=== PATIENT | female | born 1975 | race American Indian/Alaskan Native ===

== ENCOUNTER 2017-07-02 09:05 | Emergency (ER) | payer OTHER ==
[2017-07-02 09:10] VITALS: BP 153/80; PULSE 63; RESP 20; TEMP 97.9; O2SAT 100
--- NOTE | 2017-07-02 09:27 | C.PDOC ---
History Of Present Illness 42 years old female presents to the ED with complaints of intermittent headaches for 3 weeks. Patient reports pain is diffused to the front of her head , eyes and nose. She also complains of pain to her right hand that radiates to her elbow ongoing for couple of weeks. Patient admits pain worsens with writing or using the mouse of the computer. She denies taking any medication or experiencing any fever, chills, nausea or vomiting. PMD: non provided Time Seen by Provider: 07/02/17 09:15 Chief Complaint (Nursing): Headache History Per: Patient History/Exam Limitations: no limitations Onset/Duration Of Symptoms: Days (21), Intermittent Episodes Associated Symptoms: denies: Nausea, Vomiting Past Medical History Reviewed: Historical Data, Nursing Documentation, Vital Signs Vital Signs: Last Vital Signs Temp 97.9 F 07/02/17 09:07 Pulse 63 07/02/17 09:07 Resp 20 07/02/17 09:07 BP 153/80 H 07/02/17 09:07 Pulse Ox 100 07/02/17 13:59 - Medical History PMH: HTN, Hypercholesterolemia Surgical History: No Surg Hx Family History: States: Unknown Family Hx - Social History Hx Tobacco Use: No Hx Alcohol Use: No Hx Substance Use: No - Immunization History Hx Tetanus Toxoid Vaccination: No Hx Influenza Vaccination: No Hx Pneumococcal Vaccination: No Review Of Systems Except As Marked, All Systems Reviewed And Found Negative. Constitutional: Negative for: Fever, Chills Gastrointestinal: Negative for: Nausea, Vomiting Musculoskeletal: Positive for: Hand Pain (Right) Neurological: Positive for: Headache (Diffused to front of head, eyes and nose) Physical Exam - Physical Exam Appears: Non-toxic, No Acute Distress Skin: Normal Color Eye(s): bilateral: Normal Inspection, PERRL, EOMI Nose: Normal Neck: Normal, Normal ROM, Supple Cardiovascular: Rhythm Regular, No Murmur Respiratory: Normal Breath Sounds, No Wheezing Gastrointestinal/Abdominal: Normal Exam, Soft, No Tenderness Extremity: Normal ROM (of right hand), No Tenderness Neurological/Psych: Oriented x3 ED Course And Treatment O2 Sat by Pulse Oximetry: 100 (RA) Pulse Ox Interpretation: Normal Medical Decision Making Medical Decision Making: Time: 923 Patient is discharged with prescription of Motrin for hand pain and allergy medication. Disposition Counseled Patient/Family Regarding: Diagnosis, Need For Followup, Rx Given - Disposition Disposition: HOME/ ROUTINE Disposition Time: 09:24 Condition: STABLE Additional Instructions: Take medications as indicated. Follow up with your doctor for further evaluation. Prescriptions: Fluticasone Propionate [Flonase Allergy Relief] 1 ml NS BID #1 spray.susp Instructions: Seasonal Allergies (DC) Forms: General Discharge Instructions, [facility] (French), Work Excuse - Clinical Impression Clinical Impression: Headache, Seasonal allergies - Scribe Statement The provider has reviewed the documentation as recorded by the Scribe (Nakia Daley)
== END 2017-07-02 09:38 | disposition home or self-care (01) ==
LOC: C.ER 09:05
DX: R51 Headache (principal); J30.2 Other seasonal allergic rhinitis; I10 Essential (primary) hypertension; E78.00 Pure hypercholesterolemia, unspecified

== ENCOUNTER 2017-09-25 08:42 | Emergency (ER) | payer OTHER ==
[2017-09-25 08:54] VITALS: BP 142/83; PULSE 89; RESP 18; TEMP 98.7; O2SAT 100
--- NOTE | 2017-09-25 09:26 | C.PDOC ---
History Of Present Illness 42 year old female presents to ED c/o new onset of facial itchiness, burning for the past week. No associated lesions, rash. Pt states she applied prescription steroid on face once without improvement. Denies other associated symptoms. NEW ONSET FACIAL ITCH, BURNING X 1 WEEK. NO ASSOC LESIONS, RASH. PS APPLIED PRESCRIPTION STEROID ON FACE X 1, NO IMPROVE. DENIES OTHER ASSOC SX EXAM NAD NONTOXIC HEENT NO ANGIOEDEMA SKIN +DRY SKIN, FACIAL IRRITATION. NO LESIONS, ERYTHEMA. INTACT. REMAINDER NEG MDM SENSITIVE SKIN PRODUCTS, MOISTURE, PREDNISONE, REFER CLINIC Time Seen by Provider: 09/25/17 09:23 Chief Complaint (Nursing): Abnormal Skin Integrity History Per: Patient History/Exam Limitations: no limitations Onset/Duration Of Symptoms: Days Current Symptoms Are (Timing): Still Present Location Of Injury: Anterior: Face Quality Of Symptoms: Itching Recent travel outside of the [place]: No Additional History Per: Patient Past Medical History Reviewed: Historical Data, Nursing Documentation, Vital Signs Vital Signs: Last Vital Signs Temp 98.7 F 09/25/17 08:47 Pulse 89 09/25/17 08:47 Resp 18 09/25/17 08:47 BP 142/83 09/25/17 08:47 Pulse Ox 100 09/25/17 09:26 - Medical History PMH: HTN, Hypercholesterolemia Family History: States: Unknown Family Hx - Social History Hx Tobacco Use: No Hx Alcohol Use: No Hx Substance Use: No - Immunization History Hx Tetanus Toxoid Vaccination: No Hx Influenza Vaccination: No Hx Pneumococcal Vaccination: No Review Of Systems Except As Marked, All Systems Reviewed And Found Negative. Constitutional: Negative for: Fever, Chills Skin: Positive for: Other (facial itchiness). Negative for: Rash Physical Exam - Physical Exam Appears: Non-toxic, No Acute Distress Skin: Warm, Dry, No Rash, Other (facial irritation, no lesions, or erythema. skin intact) Head: Atraumatic, Normacephalic, No Other (no angioedema) Eye(s): bilateral: Normal Inspection Nose: Normal Oral Mucosa: Moist Tongue: Normal Appearing, No Swelling Lips: Normal Appearing, No Swelling Throat: Normal Neck: Normal ROM, Supple Cardiovascular: Rhythm Regular Respiratory: Normal Breath Sounds, No Rales, No Rhonchi, No Wheezing Extremity: Normal ROM Neurological/Psych: Oriented x3, Normal Speech ED Course And Treatment O2 Sat by Pulse Oximetry: 100 (RA) Pulse Ox Interpretation: Normal Medical Decision Making Medical Decision Making: SENSITIVE SKIN PRODUCTS, MOISTURE, PREDNISONE, REFER CLINIC Disposition Counseled Patient/Family Regarding: Diagnosis, Need For Followup, Rx Given - Disposition Referrals: [facility] [Outside] [facility] [Outside] Micki Mayers MD [Staff Provider] - Disposition: HOME/ ROUTINE Disposition Time: 09:23 Condition: GOOD Prescriptions: predniSONE [Prednisone] 60 mg PO DAILY #15 tab Instructions: Itchy Skin Forms: [facility] (German), Work Excuse - Clinical Impression Clinical Impression: Skin irritation, Itch - Scribe Statement The provider has reviewed the documentation as recorded by the Scribe Terri Kuhn All medical record entries made by the Komalibe were at my direction and personally dictated by me. I have reviewed the chart and agree that the record accurately reflects my personal performance of the history, physical exam, medical decision making, and the department course for this patient. I have also personally directed, reviewed, and agree with the discharge instructions and disposition.
== END 2017-09-25 09:44 | disposition home or self-care (01) ==
LOC: C.ER 08:42
DX: L29.9 Pruritus, unspecified (principal)